=== PATIENT | female | born 1950 | race African-American/Black ===

== ENCOUNTER → 2016-12-05 | Day surgery (SDC) | payer OTHER ==
[~2016-12-05] MED LIST: ALBUTEROL SULFATE; ASPIRIN EC81 M1 PO; CLARITIN10 M3 PO; COZAAR100 MG PO; FLUTICASONE; LEVOTHYROXINE75 MCG PO; LIPITOR40 MG PO; MELOXICAM15 MG PO; NITROSTAT0.4 MG SL; OMEPRAZOLE20 M1 PO; TESSALON PERLE100 M1 PO; VENTOLIN HFA; VITAMIN D 2 PO; VITAMIN D2400 UNIT PO
--- NOTE | ~2016-12-05 | OR ---
Unit #: [id number] #: [id number] Patient: REJI OLMSTEAD [id number] [address] [address] [id number] O MR#: [id number] NAME: REJI OLMSTEAD ROOM: Date of Procedure: 12/05/2016 Admission Date: 12/05/2016 Surgeon: Phill Ely M.D. : 1950 Attending Physician: Phill Ely M.D. Primary Care Physician: Jenna Man Pa-C OPERATIVE REPORT PROCEDURE PERFORMED Esophagogastroduodenoscopy with biopsy and colonoscopy to cecum. INDICATIONS FOR PROCEDURE The patient with chronic constipation, average risk for colorectal cancer, also with significant GERD symptoms, undergoing evaluation with upper endoscopy and colonoscopy. MEDICATIONS Monitored anesthesia. POSTOPERATIVE FINDINGS 1. Hiatal hernia. 2. Nonobstructing esophageal ring. 3. Chronic appearing gastritis, biopsies taken. 4. Normal duodenum and distal duodenum. 5. Colonoscopy completed to cecum. Prep was good. No polyps, masses, or colitis was seen. 6. Internal hemorrhoids. PLAN Follow up on pathology report. PPI therapy. Avoid NSAIDs. DESCRIPTION OF PROCEDURE The patient was explained of the procedure, risks, and benefits along with risks and benefits of anesthesia. She was brought to the endoscopy room. Propofol anesthesia was given. Bite block was placed. The scope was passed down the mouth into esophagus, stomach, duodenum, and distal duodenum. Findings as described. Biopsies taken. Gently, I pulled the scope out of the patient's mouth. She tolerated it well. At this time, she was turned around and repositioned for colonoscopy. Rectal exam was done, which was normal. Colonoscope was lubricated, passed up the rectum, advanced under direct vision all the way up to the cecum. Cecum was identified by ileocecal valve and appendiceal orifice. No polyps, masses, or colitis were seen. Prep was good. I retroflexed in the rectum. Small hemorrhoids were seen. The scope was gently pulled out. She tolerated it well. Dictated by... Unit #: [id number] #: [id number] Patient: REJI OLMSTEAD Pan Seay/lynnette TD: 12/06/2016 06:06 JOB #: [id number] OPERATIVE REPORT X Phill Ely MD PROCEDURE OPERATIVE NOTE
== END | disposition home or self-care (01) ==
LOC: COPS 07:49
DX: K29.50 Unspecified chronic gastritis without bleeding (principal); K22.2 Esophageal obstruction; K64.8 Other hemorrhoids; K44.9 Diaphragmatic hernia without obstruction or gangrene; K59.09 Other constipation; I10 Essential (primary) hypertension; J44.9 Chronic obstructive pulmonary disease, unspecified; E03.9 Hypothyroidism, unspecified; Z87.19 Personal history of other diseases of the digestive system; Z90.710 Acquired absence of both cervix and uterus; F17.210 Nicotine dependence, cigarettes, uncomplicated; Z79.899 Other long term (current) drug therapy; Z90.49 Acquired absence of other specified parts of digestive tract
CPT/HCPCS: 88305; 88312; J2250